=== PATIENT | female | born 1985 | race Caucasian/White ===

== ENCOUNTER 2017-01-22 13:33 | Emergency (ER) | payer OTHER ==
[~2017-01-22] VITALS: Ht 154.9 cm; Wt 160.0 kg
[~2017-01-22 13:33] MED LIST: CIPRODEX OTIC7.5 ML BOTH EARS; HYDROCODON-ACE1 EAC7 PO; Medrol Dosepak PO; Proventil,Ventolin H IH; Zithromax PO
[2017-01-22 16:29] LABS: HEMATOCRIT 42.3 % (36.0-46.0); MCH 30.3 PG (29.0-34.0); MCHC 33.1 G/DL (30.0-36.0); MCV 91.6 FL (83-99); MEAN PLAT.VOLUME 10.7 uM^3 (9.5-12.4); PLATELET COUNT 296 K/uL (156-360); RBC DIS.WIDTH-CV 12.9 % (11.8-14.6); RBC DIS.WIDTH-SD 42.2 % (39-53); RED BLOOD COUNT 4.62 M/uL (3.80-5.20); WHITE BLOOD COUNT 8.7 K/uL (4.1-10.2)
[2017-01-22 16:36] LABS: CHLORIDE 106 mEq/L (99-109); POTASSIUM 4.1 mEq/L (3.7-5.4); SODIUM 140 mEq/L (136-147)
[2017-01-22 16:38] LABS: GLUCOSE 86 mg/dL (70-99)
[2017-01-22 16:39] LABS: ANION GAP 8 MEQ/L (2-14)
[2017-01-22 16:42] LABS: GFR ESTIMATE (CALCULATED) > 59 mL/min/
[2017-01-22 16:43] LABS: UREA NITROGEN (BUN) 14 mg/dL (9-23)
[2017-01-22 16:51] LABS: QUANTITATIVE HCG < 4.0 MIU/ML
[2017-01-22] MEDS ORDERED: MOTRIN800 MG PO (17:40)
[2017-01-22] MEDS ORDERED: FLEXERIL10 MG PO (17:40)
[2017-01-22 18:09] VITALS: BP 155/97
== END 2017-01-22 18:10 | disposition home or self-care (01) ==
LOC: EME 13:33
PROVIDERS: Nurse Practitioner Family
DX: M79.604 Pain in right leg (principal); M54.30 Sciatica, unspecified side; F17.200 Nicotine dependence, unspecified, uncomplicated
CPT/HCPCS: 80048; 84702; 85027; 93971; 99281; 99283; J1885; J3010

== ENCOUNTER 2017-02-03 12:56 | Emergency (ER) | payer OTHER ==
[~2017-02-03] VITALS: Ht 154.9 cm; Wt 153.5 kg
[~2017-02-03 12:56] MED LIST changes: +FLEXERIL10 MG PO; +MOTRIN800 MG PO
[2017-02-03] MEDS ORDERED: VALIUM5 MG PO (14:02)
[2017-02-03] MEDS ORDERED: PREDNISONE10 MG PO (14:02)
[2017-02-03] MEDS ORDERED: ULTRAM50 MG PO (14:02)
[2017-02-03 14:32] VITALS: BP 118/87
== END 2017-02-03 14:33 | disposition home or self-care (01) ==
LOC: RME 12:56
DX: M54.41 Lumbago with sciatica, right side (principal); M62.830 Muscle spasm of back; F17.200 Nicotine dependence, unspecified, uncomplicated
CPT/HCPCS: 99281; 99284; J1100; J3360

== ENCOUNTER → 2017-02-25 | Outpatient (CLI) | payer OTHER ==
[~2017-02-25] MED LIST changes: +CELEXA10 MG PO; +ERGOCALCIF50000 UNIT PO; +PREDNISONE10 MG PO; +ULTRAM50 MG PO; +VALIUM5 MG PO; +VOLTAREN75 MG PO
== END | disposition home or self-care (01) ==
LOC: CDC 10:21
DX: Z01.810 Encounter for preprocedural cardiovascular examination (principal); M54.16 Radiculopathy, lumbar region; M51.26 Other intervertebral disc displacement, lumbar region
CPT/HCPCS: 93000

== ENCOUNTER 2017-02-26 07:46 | Day surgery (SDC) | payer OTHER ==
[~2017-02-26] VITALS: Ht 154.9 cm; Wt 158.8 kg
[2017-02-26 08:23] VITALS: BP 116/58
[2017-02-26 12:24] LABS: INTERNAL CONTROL VALID? YES
[2017-02-26 13:50] VITALS: BP 133/78
[2017-02-26 15:13] VITALS: BP 133/75
== END 2017-02-26 15:24 | disposition home or self-care (01) ==
LOC: SDC 07:46 → 2SOUTH 14:06 → EDSTATUS 14:06 → SDC 14:08
PROVIDERS: Neurological Surgery
DX: M51.17 Intervertebral disc disorders with radiculopathy, lumbosacral region (principal); R20.0 Anesthesia of skin; R32 Unspecified urinary incontinence; M51.26 Other intervertebral disc displacement, lumbar region; E66.01 Morbid (severe) obesity due to excess calories; Z68.44 Body mass index [BMI] 60.0-69.9, adult; F17.200 Nicotine dependence, unspecified, uncomplicated; J45.909 Unspecified asthma, uncomplicated; Z88.8 Allergy status to other drugs, medicaments and biological substances
CPT/HCPCS: 72020; 76000; 84703; J0690; J1170; J1720; J2250; J2930; J3010; J3370; S0020

== ENCOUNTER 2018-01-21 11:22 | Day surgery (SDC) | payer OTHER ==
[~2018-01-21] VITALS: Ht 154.9 cm; Wt 111.1 kg
[~2018-01-21 11:22] MED LIST changes: +NEURONTIN600 MG PO; +OXAYDO5 MG PO
[2018-01-21 11:54] VITALS: BP 123/70
[2018-01-21 18:30] VITALS: BP 142/78
[2018-01-21 19:33] VITALS: BP 128/67
== END 2018-01-21 19:50 | disposition home or self-care (01) ==
LOC: SDC 11:22
DX: M51.16 Intervertebral disc disorders with radiculopathy, lumbar region (principal); Z98.890 Other specified postprocedural states; E66.01 Morbid (severe) obesity due to excess calories; Z68.42 Body mass index [BMI] 45.0-49.9, adult; J45.909 Unspecified asthma, uncomplicated; Z79.891 Long term (current) use of opiate analgesic; F17.200 Nicotine dependence, unspecified, uncomplicated
CPT/HCPCS: 72020; 76000; J0131; J0330; J0690; J1170; J2250; J2405; J2930; J3010; J3370; S0020